=== PATIENT | female | born 1970 | race Caucasian/White ===

== ENCOUNTER → 2017-06-25 | Outpatient (CLI) | payer OTHER ==
--- NOTE | 2017-06-25 13:50 | BD ---
EXAMINATION TYPE: MG DEXA axial skeleton. DATE OF EXAM: 06/25/2017 COMPARISON: NONE CLINICAL HISTORY: Osteoporosis screening. Height: 64 IN Weight: 215 LBS FRAX RISK QUESTIONS: Alcohol (3 or more units per day): NO Family History (Parent hip fracture): NO Glucocorticoids (More than 3mos): NO (Ex: prednisone, prednisolone, methylprednisolone, dexamethasone, and hydrocortisone). History of Fracture in Adulthood: N/A Secondary Osteoporosis: 1. Type 1 Diabetes: NO 2. Hyperthyroidism: NO 3. Menopause before 45: NO AGE 46 4. Malnutrition: NO 5. Chronic liver disease: NO Rheumatoid Arthritis: NO Current Tobacco Use: NO RISK FACTORS HISTORY OF: Family History of Osteoporosis: MOTHER, GRANDMOTHER, AUNT Active: YES Postmenopausal woman: AGE 46 Take estrogen and/or progesterone medications: NONE NOW How long: AGE 16 - 26. OFF AND ON Adrenal Insufficiency: YES MEDICATIONS: Additional Medications: CALCIUM, VIT D EXAM MEASUREMENTS: Bone mineral densitometry was performed using the [employer] System. Bone mineral density as measured about the Lumbar spine is: ----- L1-L4(G/cm2): 1.190 T Score Values are as follows: ----- L2: 0.5 ----- L3: 0.1 ----- L4: -0.2 ----- L1-L4: 0.1 Bone mineral density BASELINE Bone mineral density about the R hip (g/cm2): 0.744 Bone mineral density about the L hip (g/cm2): 0.772 T Score values are as follows: -----R Neck: -2.1 -----L Neck: -1.9 -----R Total: -1.2 -----L Total: -1.2 Bone mineral density BASELINE IMPRESSION: Osteopenia (T Score between -2.5 and -1) with regards to the hips. There is slightly increased risk of fracture and the patient may be considered for treatment. Re-Screen 2-5 years. NOTE: T-SCORE=SD OF THE YOUNG ADULT MEAN.
== END | disposition home or self-care (01) ==
LOC: RADBDWWP 12:06
PROVIDERS: ATTEND Family Medicine
DX: M85.852 Other specified disorders of bone density and structure, left thigh (principal); M85.851 Other specified disorders of bone density and structure, right thigh
CPT/HCPCS: 77080

== ENCOUNTER → 2017-09-05 | Outpatient (CLI) | payer OTHER ==
--- NOTE | 2017-09-07 10:33 | MM ---
Reason for exam: screening (asymptomatic). Physical Findings: A clinical breast exam by your physician is recommended on an annual basis and results should be correlated with mammographic findings. MG 3D Screening Mammo W/Cad Bilateral CC and MLO view(s) were taken. The breast tissue is heterogeneously dense. This may lower the sensitivity of mammography. There is chronic nodularity in the right breast. No significant changes when compared with prior studies. ASSESSMENT: Negative, BI-RAD 1 RECOMMENDATION: Routine screening mammogram of both breasts in 1 year.
== END | disposition home or self-care (01) ==
LOC: RADMAMWWP 14:59
DX: Z12.31 Encounter for screening mammogram for malignant neoplasm of breast (principal)
CPT/HCPCS: 77063; 77067

== ENCOUNTER → 2018-01-11 | Outpatient (CLI) | payer OTHER ==
--- NOTE | 2018-01-11 15:13 | US ---
EXAMINATION TYPE: US pelvic complete DATE OF EXAM: 01/11/2018 COMPARISON: NONE CLINICAL HISTORY: N93.9 ABNORMAL UTERINE [id number]; 2 menses in November TECHNIQUE: Transvaginal (TV) and Transabdominal (TA) . Transabdominal sonographic images of the pel vis were acquired. Transvaginal sonographic images were medically necessary to better assess the fol lowing anatomy: endometrium Date of LMP: end of November EXAM MEASUREMENTS: Uterus: 9.9 x 5.5 x 4.3 cm Endometrial Stripe: 0.7 cm Right Ovary: 2.7 x 2.2 x 2.0 cm Left Ovary: 3.0 x 2.6 x 3.0 cm 1. Uterus: Anteverted; multiple Nabothian Cysts in cervix with largest = 0.9 x 1.1 x 0.9cm. 2. Endometrium: thickness is wnl for approximately Day 16 LMP 3. Right Ovary: small follicles with largest = 0.8 x 0.8 x 0.6cm 4. Left Ovary: simple follicle = 2.1 x 2.2 x 2.4cm Spectral, color and waveform Doppler imaging shows good arterial and venous flow within the ovaries ; . 5. Bilateral Adnexa: wnl 6. Posterior cul-de-sac: wnl Heterogeneous anteverted uterus is seen. Multiple nabothian cysts are seen best on transvaginal evalu ation of cervix. Endometrium is not suspiciously thickened. No free fluid is seen in pelvic cul-de-sa c. Both ovaries are seen. Within left ovary there is 2.1 x 2.4 cm prominent follicle or simple small ova shereen cyst marked by technologist. No suspicious extraovarian adnexal lesions are seen. IMPRESSION: No suspicious endometrial thickening or finding seen to account for patient's abnormal ut erine bleeding.
== END ==
LOC: RADUSWWP 13:33
DX: N93.9 Abnormal uterine and vaginal bleeding, unspecified (principal)
CPT/HCPCS: 76830; 76856

== ENCOUNTER 2018-06-17 18:17 | Emergency (ER) | payer OTHER, BC ==
[2018-06-17] MEDS ORDERED: PANTOPRAZOLE 40 MG/10 ML VIAL IVP STA (19:28)
[2018-06-17] MEDS ORDERED: SODIUM CHLORIDE 0.9% 1,000 ML IV STA ×2 (19:28)
[2018-06-17] MEDS ORDERED: ONDANSETRON 4 MG/2 ML VIAL IVP STA (19:28)
[2018-06-17] MEDS ORDERED: ACETAMINOPHEN TAB 500 MG TAB PO STA (19:29)
[2018-06-17] MEDS ORDERED: IBUPROFEN 800 MG TAB PO STA (19:29)
--- NOTE | 2018-06-17 19:29 | ED ---
Abdominal Pain HPI - General Chief Complaint: Abdominal Pain Stated Complaint: poss food poisening Time Seen by Provider: 06/17/18 19:27 Source: patient, RN notes reviewed, old records reviewed Mode of arrival: ambulatory Limitations: no limitations - History of Present Illness Initial Comments: This is a 48-year-old female the ER for evaluation. States she presents for evaluation regards to nausea vomiting. Nausea vomiting epigastric pain for a few hours today began at work. No diarrhea no fevers. No prior history of similar complaints. No history of abdominal surgery. MD Complaint: abdominal pain -: hour(s) Location: diffuse, epigastric Radiation: RLQ, epigastric Migration to: epigastric Severity: moderate Severity scale (1-10): 4 Quality: cramping, stabbing Consistency: constant Improves With: nothing Worsens With: nothing Context: possible food poisoning Associated Symptoms: nausea, vomiting - Related Data Home Medications Medication Instructions Recorded Confirmed Biotin 5,000 mcg PO DAILY 06/17/18 06/17/18 Calcium Carbonate [Tums] 1,000 mg PO Q4H 06/17/18 06/17/18 Ergocalciferol [Vitamin D2 50,000 unit PO Q7D 06/17/18 06/17/18 (DRISDOL)] Melatonin 2.5 mg PO HS 06/17/18 06/17/18 Previous Rx's Medication Instructions Recorded Ondansetron Odt [Zofran ODT] 4 mg PO Q8HR PRN #10 tab 06/17/18 Allergies Allergy/AdvReac Type Severity Reaction Status Date / Time No Known Allergies Allergy Verified 06/17/18 19:56 Review of Systems ROS Statement: Those systems with pertinent positive or pertinent negative responses have been documented in the HPI. ROS Other: All systems not noted in ROS Statement are negative. Past Medical History Past Medical History: No Reported History History of Any Multi-Drug Resistant Organisms: None Reported Past Surgical History: Adenoidectomy, Tonsillectomy, Tubal Ligation Additional Past Surgical History / Comment(s): hystoscopy Past Psychological History: No Psychological Hx Reported Smoking Status: Never smoker Past Alcohol Use History: None Reported Past Drug Use History: None Reported General Exam Limitations: no limitations General appearance: alert, in no apparent distress Head exam: Present: atraumatic, normocephalic, normal inspection Eye exam: Present: normal appearance, PERRL, EOMI. Absent: scleral icterus, conjunctival injection, periorbital swelling ENT exam: Present: normal exam, mucous membranes moist Neck exam: Present: normal inspection. Absent: tenderness, meningismus, lymph adenopathy Respiratory exam: Present: normal lung sounds bilaterally. Absent: respiratory distress, wheezes, rales, rhonchi, stridor Cardiovascular Exam: Present: normal rhythm, tachycardia, normal heart sounds. Absent: systolic murmur, diastolic murmur, rubs, gallop, clicks GI/Abdominal exam: Present: soft, normal bowel sounds. Absent: distended, tenderness, guarding, rebound, rigid Extremities exam: Present: normal inspection, full ROM, normal capillary refill. Absent: tenderness, pedal edema, joint swelling, calf tenderness Back exam: Present: normal inspection Neurological exam: Present: alert, oriented X3, CN II-XII intact Psychiatric exam: Present: normal affect, normal mood Skin exam: Present: warm, dry, intact, normal color. Absent: rash Course Vital Signs 06/17/18 06/17/18 18:50 21:34 Temperature 101.4 F H 98.3 F Pulse Rate 104 H 90 Respiratory 20 18 Rate Blood Pressure 118/65 107/58 O2 Sat by Pulse 97 97 Oximetry - Reevaluation(s) Reevaluation #1: 06/17/18 20:35 medical record is reviewed Reevaluation #2: 06/17/18 20:35 symptoms improved Medical Decision Making - Medical Decision Making 4-year-old female the ER for evaluation of gastritis, positive nausea vomiting abdominal pain, the patient can be discharged home - Lab Data Result diagrams: 06/17/18 19:57 06/17/18 19:57 Lab Results 06/17/18 06/17/18 06/17/18 Range/Units 19:57 19:57 19:57 WBC 10.6 (3.8-10.6) k/uL RBC 5.17 (3.80-5.40) m/uL Hgb 14.7 (11.4-16.0) gm/dL Hct 42.4 (34.0-46.0) % MCV 82.0 (80.0-100.0) fL MCH 28.5 (25.0-35.0) pg MCHC 34.7 (31.0-37.0) g/dL RDW 13.3 (11.5-15.5) % Plt Count 308 (150-450) k/uL Neutrophils % 90 % Lymphocytes % 6 % Monocytes % 3 % Eosinophils % 1 % Basophils % 0 % Neutrophils # 9.6 H (1.3-7.7) k/uL Lymphocytes # 0.6 L (1.0-4.8) k/uL Monocytes # 0.3 (0-1.0) k/uL Eosinophils # 0.1 (0-0.7) k/uL Basophils # 0.0 (0-0.2) k/uL Sodium 138 (137-145) mmol/L Potassium 3.9 (3.5-5.1) mmol/L Chloride 103 (98-107) mmol/L Carbon Dioxide 25 (22-30) mmol/L Anion Gap 10 mmol/L BUN 16 (7-17) mg/dL Creatinine 0.96 (0.52-1.04) mg/dL Est GFR (CKD-EPI)AfAm 80 (>60 ml/min/1.73 sqM) Est GFR (CKD-EPI)NonAf 69 (>60 ml/min/1.73 sqM) Glucose 123 H (74-99) mg/dL Lactic Ac Sepsis Rflx Plasma Lactic Acid David 2.5 H* (0.7-2.0) mmol/L Calcium 9.5 (8.4-10.2) mg/dL Phosphorus 2.0 L (2.5-4.5) mg/dL Magnesium 1.6 (1.6-2.3) mg/dL Total Bilirubin 0.9 (0.2-1.3) mg/dL AST 24 (14-36) U/L ALT 36 (9-52) U/L Alkaline Phosphatase 68 (38-126) U/L Total Protein 7.0 (6.3-8.2) g/dL Albumin 4.4 (3.5-5.0) g/dL Amylase 55 (30-110) U/L Lipase 65 (23-300) U/L 06/17/18 Range/Units 20:45 WBC (3.8-10.6) k/uL RBC (3.80-5.40) m/uL Hgb (11.4-16.0) gm/dL Hct (34.0-46.0) % MCV (80.0-100.0) fL MCH (25.0-35.0) pg MCHC (31.0-37.0) g/dL RDW (11.5-15.5) % Plt Count (150-450) k/uL Neutrophils % % Lymphocytes % % Monocytes % % Eosinophils % % Basophils % % Neutrophils # (1.3-7.7) k/uL Lymphocytes # (1.0-4.8) k/uL Monocytes # (0-1.0) k/uL Eosinophils # (0-0.7) k/uL Basophils # (0-0.2) k/uL Sodium (137-145) mmol/L Potassium (3.5-5.1) mmol/L Chloride (98-107) mmol/L Carbon Dioxide (22-30) mmol/L Anion Gap mmol/L BUN (7-17) mg/dL Creatinine (0.52-1.04) mg/dL Est GFR (CKD-EPI)AfAm (>60 ml/min/1.73 sqM) Est GFR (CKD-EPI)NonAf (>60 ml/min/1.73 sqM) Glucose (74-99) mg/dL Lactic Ac Sepsis Rflx Y Plasma Lactic Acid David (0.7-2.0) mmol/L Calcium (8.4-10.2) mg/dL Phosphorus (2.5-4.5) mg/dL Magnesium (1.6-2.3) mg/dL Total Bilirubin (0.2-1.3) mg/dL AST (14-36) U/L ALT (9-52) U/L Alkaline Phosphatase (38-126) U/L Total Protein (6.3-8.2) g/dL Albumin (3.5-5.0) g/dL Amylase (30-110) U/L Lipase (23-300) U/L - Radiology Data Radiology results: report reviewed (CT of pelvis, ultrasound gallbladder negative for acute disease), image reviewed Disposition Clinical Impression: Abdominal pain, Gastroenteritis, Nausea & vomiting Disposition: HOME SELF-CARE Instructions (If sedation given, give patient instructions): Acute Nausea and Vomiting (ED), Abdominal Pain (ED) Prescriptions: Ondansetron Odt [Zofran ODT] 4 mg PO Q8HR PRN #10 tab PRN Reason: nausea/vomiting Is patient prescribed a controlled substance at d/c from ED?: No Referrals: [facility],Clinic [Primary Care Provider] - 1-2 days
[2018-06-17 20:10] LABS: Basophils % (A) 0 %; Eosinophils # (A) 0.1 k/uL (0-0.7); Eosinophils % (A) 1 %; HCT 42.4 % (34.0-46.0); HGB 14.7 gm/dL (11.4-16.0); Lymphocytes # (A) 0.6 k/uL (1.0-4.8); Lymphocytes % (A) 6 %; MCH 28.5 pg (25.0-35.0); MCHC 34.7 g/dL (31.0-37.0); Mean Platelet Volume 7.3; Monocytes # (A) 0.3 k/uL (0-1.0); Monocytes % (A) 3 %; Neutrophils # (A) 9.6 k/uL (1.3-7.7); Neutrophils % (A) 90 %; Platelet Count 308 k/uL (150-450); RBC 5.17 m/uL (3.80-5.40); RDW 13.3 % (11.5-15.5); WBC 10.6 k/uL (3.8-10.6)
[2018-06-17 20:20] LABS: Albumin 4.4 g/dL (3.5-5.0); Calcium 9.5 mg/dL (8.4-10.2); Magnesium 1.6 mg/dL (1.6-2.3); Potassium 3.9 mmol/L (3.5-5.1); Total Bilirubin 0.9 mg/dL (0.2-1.3)
[2018-06-17] MEDS ORDERED: MORPHINE SULFATE 4 MG/ML SYRINGE IVP STA (20:35)
[2018-06-17] MEDS ORDERED: MORPHINE SULFATE 4 MG/ML SYRINGE IVP PRN (20:35)
--- NOTE | 2018-06-17 21:05 | CT ---
EXAMINATION TYPE: CT abdomen pelvis w con DATE OF EXAM: 06/17/2018 COMPARISON: None HISTORY: Mid abdominal pain. CT DLP: 1176.3 mGycm Automated exposure control for dose reduction was used. TECHNIQUE: Helical acquisition of images was performed from the lung bases through the pelvis. CONTRAST: Performed without Oral Contrast and with IV Contrast, patient injected with 100ml mL of Isovue 300. FINDINGS: Lung bases are clear of infiltrate. There is no pleural effusion. Heart size is normal. There is no p ericardial effusion. There is fatty infiltration of the liver. Spleen appears normal. There is no viramontes creatic mass. Stomach appears normal. The bile ducts are not dilated. Gallbladder appears normal. There is no adrenal mass. Kidneys show satisfactory contrast opacification. There is no hydronephrosi s. There is no retroperitoneal adenopathy. Appendix appears normal. Bladder distends smoothly. There is no inguinal hernia. There is no free fluid in the pelvis. Uterus is anteverted. There is no sign o f a pelvic mass. There is no mesenteric edema. There is no ascites. There is no free air. There is no evidence of dafne l obstruction. Lumbar spine is intact. Bony pelvis is intact. IMPRESSION: NEGATIVE CT SCAN OF THE ABDOMEN AND PELVIS. NORMAL APPENDIX.
--- NOTE | 2018-06-17 21:23 | US ---
EXAMINATION TYPE: US gallbladder DATE OF EXAM: 06/17/2018 COMPARISON: NONE CLINICAL HISTORY: Pain. RUQ pain EXAM MEASUREMENTS: Liver Length: 20.1 cm Gallbladder Wall: 0.3 cm CBD: 0.5 cm Right Kidney: 10.7 x 4.3 x 4.2 cm Pancreas: Obscured by bowel gas Liver: Increased attenuation hepatomegaly. Gallbladder: Echoes seen artifact vs. sludge. Evidence for sonographic Minor's sign: Yes CBD: wnl Right Kidney: wnl IMPRESSION: No gallstones or dilated ducts. Hepatomegaly and fatty infiltration of the liver.
[2018-06-17 21:36] VITALS: BP 107/58; PULSE 90; RESP 18; TEMP 98.3
== END 2018-06-17 21:40 | disposition home or self-care (01) ==
LOC: EC 18:17
DX: K52.9 Noninfective gastroenteritis and colitis, unspecified (principal); R00.0 Tachycardia, unspecified; Z53.20 Procedure and treatment not carried out because of patient's decision for unspecified reasons
CPT/HCPCS: 36415; 80053; 82150; 83605; 83690; 83735; 84100; 85025; 76705; 74177; 99284; 96374; 96375; 96361; J2405; C9113; Q9967

== ENCOUNTER → 2018-10-17 | Outpatient (CLI) | payer BC, OTHER ==
--- NOTE | 2018-10-18 09:09 | MM ---
Reason for exam: screening (asymptomatic). Last mammogram was performed 1 year and 1 month ago. Physical Findings: A clinical breast exam by your physician is recommended on an annual basis and results should be correlated with mammographic findings. MG 3D Screening Mammo W/Cad Bilateral CC and MLO view(s) were taken. XCCL view(s) were taken of the right breast. Prior study comparison: September 05, 2017, bilateral MG 3d screening mammo w/cad. The breast tissue is heterogeneously dense. This may lower the sensitivity of mammography. There is no discrete abnormality. No significant changes when compared with prior studies. ASSESSMENT: Negative, BI-RAD 1 RECOMMENDATION: Routine screening mammogram of both breasts in 1 year.
== END | disposition home or self-care (01) ==
LOC: RADMAMWWP 11:19
DX: Z12.31 Encounter for screening mammogram for malignant neoplasm of breast (principal)
CPT/HCPCS: 77063; 77067

== ENCOUNTER → 2018-11-11 | Outpatient (CLI) | payer OTHER ==
--- NOTE | 2018-11-11 09:32 | US ---
EXAMINATION TYPE: US abdomen complete DATE OF EXAM: 11/11/2018 COMPARISON: US & CT 2019 CLINICAL HISTORY: 48-year-old female R10.9 BLOATING. Abdominal pain and bloating that gets worse afte r eating or drinking x couple years, patient not NPO: had coffee before exam. TECHNIQUE: Multiple sonographic images of the abdomen are obtained. FINDINGS: EXAM MEASUREMENTS: Liver Length: 17.6 cm Gallbladder Wall: 0.2 cm CBD: 0.4 cm Spleen: 10.7 cm Right Kidney: 9.2 x 4.4 x 4.5 cm Left Kidney: 9.6 x 5.5 x 4.2 cm [employer] notes:Difficult and limited study due to patient body habitus and patient not NPO Pancreas: visualized portions wnl, limited by overlying midline bowel gas Liver: Borderline enlarged. Echogenic and slightly coarsened appearance with far field attenuation. T he secondary limits assessment for focal lesion. Gallbladder: wnl Evidence for sonographic Minor's sign: yes CBD: visualized portions wnl, limited by overlying bowel gas Spleen: wnl Right Kidney: wnl Left Kidney: wnl Upper IVC: wnl Abd Aorta: visualized portions wnl, limited by overlying midline bowel gas IMPRESSION: 1. Suspect moderate to severe hepatic steatosis with borderline hepatomegaly (17.6 cm). 2. Sonographic Minor signs were positive. However, there is no ultrasound evidence for cholelithiasi s or acute cholecystitis. This may reflect referred pain such as from the liver. If further imaging e valuation of the gallbladder is desired, HIDA scan can be considered.
--- NOTE | 2018-11-11 19:31 | BD ---
EXAMINATION TYPE: Axial Bone Density DATE OF EXAM: 11/11/2018 COMPARISON: 2018 CLINICAL HISTORY: 48-year-old female other osteoporosis with current pathologic fracture : no Height: 64.25 Weight: 204 FRAX RISK QUESTIONS: Alcohol (3 or more units per day): no Family History (Parent hip fracture): no Glucocorticoids (More than 3mos): no (Ex: prednisone, prednisolone, methylprednisolone, dexamethasone, and hydrocortisone). History of Fracture in Adulthood: no Secondary Osteoporosis: 1. Type 1 Diabetes: no 2. Hyperthyroidism: no 3. Menopause before 45: no 4. Malnutrition: no 5. Chronic liver disease: no Rheumatoid Arthritis: no Current Tobacco Use: no RISK FACTORS HISTORY OF: Family History of Osteoporosis: yes Active: yes Diet low in dairy products/other sources of calcium: no Postmenopausal woman: no If Premenopausal, do you have irregular periods: yes Take estrogen and/or progesterone medications: not now How long: DEPO shots for 8 years, not now Lost more than 2 inches in height since high school: no Frequent falls: no Poor Health: no Hyperparathyroidism: no Adrenal Insufficiency: NO MEDICATIONS: Prednisone or other steroids: no Thyroid Medications: no Osteoporosis Medications: no Additional Medications: none to note Additional History: EXAM MEASUREMENTS: Bone mineral densitometry was performed using the [employer] System. Bone mineral density as measured about the Lumbar spine is: ----- L1-L4(G/cm2): 1.171 T Score Values are as follows: ----- L2: -0.3 ----- L3: 0.1 ----- L4: -0.3 ----- L1-L4: -0.1 Bone mineral density has: Decreased -2.5% since study of: 06/25/2017 Bone mineral density about the R hip (g/cm2): 0.749 Bone mineral density about the L hip (g/cm2): 0.801 T Score values are as follows: -----R Neck: -2.1 -----L Neck: -1.7 -----R Total: -1.2 -----L Total: -1.2 Bone mineral density has: Increased 0.8% since study of: 06/25/2017 IMPRESSION: Osteopenia (T Score between -2.5 and -1). There is slightly increased risk of fracture and the patient may be considered for treatment. Re-Screen 2-5 years. NOTE: T-SCORE=SD OF THE YOUNG ADULT MEAN.
== END | disposition home or self-care (01) ==
LOC: RADUSWWP 07:53
PROVIDERS: ATTEND Physician Assistant Medical
DX: M85.80 Other specified disorders of bone density and structure, unspecified site (principal); R93.5 Abnormal findings on diagnostic imaging of other abdominal regions, including retroperitoneum; R10.9 Unspecified abdominal pain
CPT/HCPCS: 76700; 77080

== ENCOUNTER → 2018-12-05 | Outpatient (CLI) | payer OTHER ==
--- NOTE | 2018-12-05 09:27 | NM ---
Nuclear medicine hepatobiliary scan. HISTORY: Pain. DOSAGE: The patient received 8 ounces of ensure plus and 4.5 mCi of Technetium 99m Choletec. FINDINGS: There is normal hepatic extraction. The gallbladder is seen by 30 minutes. There is bilia ry to bowel clearance by 20 minutes. Ejection fraction is 84%. IMPRESSION: 1. Ejection fraction is 84% which can occasionally be seen with hyperdynamic gallbladder correlate cl inically
== END | disposition home or self-care (01) ==
LOC: RADNMMAIN 06:52
PROVIDERS: ATTEND Physician Assistant Medical
DX: R14.0 Abdominal distension (gaseous) (principal)
CPT/HCPCS: 78226; A9537

== ENCOUNTER → 2020-04-07 | Outpatient (CLI) | payer OTHER ==
--- NOTE | 2020-04-07 17:24 | BD ---
EXAMINATION TYPE: Axial Bone Density DATE OF EXAM: 04/07/2020 COMPARISON: 11.11.2018 CLINICAL HISTORY: 49 YR OLD FEMALE....ICD-10 CODE: M81.8 OSTEOPOROSIS Height: 64 Weight: 206 FRAX RISK QUESTIONS: Family History (Parent hip fracture): YES Secondary Osteoporosis: YES 3. Menopause before 45: YES Current Tobacco Use: QUIT 6 YRS AGO RISK FACTORS HISTORY OF: Family History of Osteoporosis: YES, GRANDMOTHER AND HER SISTER, BOTH WITH HIP FXS Active: YES Diet low in dairy products/other sources of calcium: NO Postmenopausal woman: YES, AT AGE ABOUT 38 YRS ON AND OFF DEPO, REMOVED PERMANENTLY 2013 Take estrogen and/or progesterone medications: DEPO FOR 8 YRS Hyperparathyroidism: NO Adrenal Insufficiency: NO MEDICATIONS: Additional Medications: VIT D, VIT C AND MULTIVITAMIN, Additional History: NOTHING ADDITIONAL TO ADD EXAM MEASUREMENTS: Bone mineral densitometry was performed using the [employer] System. Bone mineral density as measured about the Lumbar spine is: ----- L1-L4(G/cm2): 1.281 T Score Values are as follows: ----- L1: 0.4 ----- L2: 1.1 ----- L3: 0.8 ----- L4: 0.9 ----- L1-L4: 0.8 Bone mineral density has: Increased 11.1% since study of: 11.11.2018 Bone mineral density about the R hip (g/cm2): 0.887 Bone mineral density about the L hip (g/cm2): 0.899 T Score values are as follows: -----R Neck: -1.9 -----L Neck: -1.7 -----R Total: -1.0 -----L Total: -0.9 Bone mineral density has: Increased 3.7% since study of: 11.11.2018 FRAX%s: THERE IS A 11.0% CHANCE FOR A MAJOR OSTEOPOROTIC FX AND A 0.7% FOR HIP......PROBABILIT Y FOR FX IN 10 YRS TIME IMPRESSION: Osteopenia (T Score between -2.5 and -1). There is slightly increased risk of fracture and the patient may be considered for treatment. Re-Screen 2-5 years. NOTE: T-SCORE=SD OF THE YOUNG ADULT MEAN.
--- NOTE | 2020-04-08 12:16 | MM ---
Reason for exam: screening (asymptomatic). Last mammogram was performed 1 year and 6 months ago. Physical Findings: A clinical breast exam by your physician is recommended on an annual basis and results should be correlated with mammographic findings. MG 3D Screening Mammo W/Cad Bilateral CC and MLO view(s) were taken. Prior study comparison: October 17, 2018, bilateral MG 3d screening mammo w/cad. September 05, 2017, bilateral MG 3d screening mammo w/cad. The breast tissue is heterogeneously dense. This may lower the sensitivity of mammography. Focal asymmetry upper outer left breast. This finding is changed when compared with previous exams. ASSESSMENT: Incomplete: need additional imaging evaluation, BI-RAD 0 RECOMMENDATION: Special view mammogram of the left breast. If lesion persists on supplemental views, image directed ultrasound is recommended. [facility] will attempt to contact patient to return for supplemental views and ultrasound if indicated.
== END | disposition home or self-care (01) ==
LOC: RADMAMWWP 08:18
DX: Z12.31 Encounter for screening mammogram for malignant neoplasm of breast (principal); M85.80 Other specified disorders of bone density and structure, unspecified site
CPT/HCPCS: 77063; 77067; 77080

== ENCOUNTER → 2020-04-09 | Outpatient (CLI) | payer OTHER ==
--- NOTE | 2020-04-09 09:21 | MM ---
Reason for exam: additional evaluation requested from abnormal screening. Last mammogram was performed less than 1 month ago. Physical Findings: Nurse did not find any significant physical abnormalities on exam. MG 3D Work Up W/Cad LT Spot compression CC, spot compression MLO, and ML view(s) were taken of the left breast. Prior study comparison: April 07, 2020, bilateral MG 3d screening mammo w/cad. October 17, 2018, bilateral MG 3d screening mammo w/cad. The breast tissue is heterogeneously dense. This may lower the sensitivity of mammography. Area of asymmetric density is improved. These results were verbally communicated with the patient and result sheet given to the patient on 04/09/20. ASSESSMENT: Probably benign, BI-RAD 3 RECOMMENDATION: Follow-up diagnostic mammogram of the left breast in 6 months.
== END | disposition home or self-care (01) ==
LOC: RADMAMWWP 07:41
DX: R92.8 Other abnormal and inconclusive findings on diagnostic imaging of breast (principal)
CPT/HCPCS: 77061; 77065

== ENCOUNTER 2020-08-09 10:16 | Day surgery (SDC) | payer OTHER ==
[2020-08-05 12:05] VITALS: BMI 36.3
[~2020-08-09 10:16] MED LIST: LACTATED RINGERS 1,000 ML IV SCH; LIDOCAINE 1% (10MG/ML) FOR IV START INTRADERMA PRN
[2020-08-09 10:40] VITALS: RESP 16; TEMP 97.3
[2020-08-09] MEDS ORDERED: PROPOFOL 10 MG/ML 20 ML VIAL IV ONE (11:53)
--- NOTE | 2020-08-09 12:37 | P.PCN ---
Date of Procedure: 08/09/20 Description of Procedure: BRIEF HISTORY: Patient is a 50-year-old female presenting for outpatient colonoscopy for history of colon polyps. She believes her last colonoscopy was 10 years ago. No change in bowel habits or blood per rectum. She does report a family history of colon cancer in her grandfather. PROCEDURE PERFORMED: Colonoscopy with polypectomy. PREOPERATIVE DIAGNOSIS: History of colon polyps, last colonoscopy approximately 10 years ago per report from patient. ESTIMATED BLOOD LOSS: Minimal. IV sedation per Anesthesia. PROCEDURE: After informed consent was obtained, the patient, was brought into the endoscopy unit. IV sedation was administered by Anesthesia under continuous monitoring. Digital rectal examination was normal. Initially the Olympus CF-190 flexible video colonoscope was then inserted in the rectum, gradually advanced into the cecum without any difficulty. Careful examination was performed as the scope was gradually being withdrawn. Ileocecal valve and the appendiceal orifice were visualized and appeared normal. Prep was excellent. Mucosa of the cecum, ascending colon, transverse colon, descending colon, sigmoid colon, and rectum appeared normal. A flat 5 mm transverse colon polyp was removed with cold snare polypectomy. A pedunculated 8 mm sigmoid colon polyp was removed with hot snare polypectomy. A diminutive 3 mm rectal polyp was removed with cold forcep polypectomy. A few scattered sigmoid diverticula noted. Retroflexion was performed in the rectum and no lesions were seen, low-grade internal hemorrhoids were noted. The patient tolerated the procedure well. IMPRESSION: Pedunculated sigmoid polyp removed with hot snare polypectomy. Flat measures colon polyp removed with cold snare polypectomy. Diminutive rectal polyp removed with cold forcep polypectomy. Mild sigmoid diverticulosis. Internal hemorrhoids. RECOMMENDATIONS: Findings of this examination were discussed with the patient and her family. Okay to resume diet. Okay to resume medications. Await pathology from polypectomy. Recommend repeat colonoscopy in 5 years for history of colon polyps pending pathology from polypectomy.
[2020-08-09 12:54] VITALS: BP 138/75; PULSE 77
== END 2020-08-09 13:12 | disposition home or self-care (01) ==
LOC: ORWHC2ENDO 10:16
PROVIDERS: ATTEND Internal Medicine
DX: Z12.11 Encounter for screening for malignant neoplasm of colon (principal); D12.3 Benign neoplasm of transverse colon; D12.5 Benign neoplasm of sigmoid colon; D12.8 Benign neoplasm of rectum; K57.30 Diverticulosis of large intestine without perforation or abscess without bleeding; K64.8 Other hemorrhoids; Z86.010 Personal history of colon polyps; Z83.71 Family history of colonic polyps; E66.9 Obesity, unspecified; Z68.36 Body mass index [BMI] 36.0-36.9, adult; Z87.891 Personal history of nicotine dependence; Z90.89 Acquired absence of other organs; Z98.51 Tubal ligation status; Z98.890 Other specified postprocedural states
CPT/HCPCS: 81025; 88305; 45380; 45385; J2704

== ENCOUNTER → 2020-10-08 | Outpatient (CLI) | payer OTHER ==
--- NOTE | 2020-10-08 11:43 | MM ---
Reason for exam: follow-up at short interval from prior study. Last mammogram was performed 6 months ago. Physical Findings: Nurse did not find any significant physical abnormalities on exam. MG 3D Diag Mammo W/Cad LT CC and MLO view(s) were taken of the left breast. Prior study comparison: April 09, 2020, left breast MG 3d work up w/cad LT. The breast tissue is heterogeneously dense. This may lower the sensitivity of mammography. Focal asymmetry left upper outer quadrant, stable. No significant new findings when compared with previous films. These results were verbally communicated with the patient and result sheet given to the patient on 10/08/20. ASSESSMENT: Benign, BI-RAD 2 RECOMMENDATION: Return to routine screening mammogram schedule for both breasts.
== END | disposition home or self-care (01) ==
LOC: RADMAMWWP 06:57
DX: R92.8 Other abnormal and inconclusive findings on diagnostic imaging of breast (principal)
CPT/HCPCS: 77061; 77065

== ENCOUNTER → 2020-10-16 | Outpatient (CLI) | payer OTHER ==
[2020-10-16 12:12] LABS: Potassium 4.9 mmol/L (3.5-5.1)
[2020-10-16 12:23] LABS: Basophils # (A) 0.1 k/uL (0-0.2); Basophils % (A) 1 %; Eosinophils # (A) 0.2 k/uL (0-0.7); Eosinophils % (A) 3 %; HCT 43.4 % (34.0-46.0); Lymphocytes # (A) 2.6 k/uL (1.0-4.8); Lymphocytes % (A) 34 %; MCH 29.3 pg (25.0-35.0); MCHC 34.5 g/dL (31.0-37.0); MCV 85.1 fL (80.0-100.0); Mean Platelet Volume 8.4; Monocytes # (A) 0.5 k/uL (0-1.0); Monocytes % (A) 7 %; Neutrophils # (A) 4.1 k/uL (1.3-7.7); Neutrophils % (A) 54 %; Platelet Count 299 k/uL (150-450); RBC 5.11 m/uL (3.80-5.40); RDW 13.3 % (11.5-15.5); WBC 7.6 k/uL (3.8-10.6)
== END | disposition home or self-care (01) ==
LOC: LABPAT 10:20
PROVIDERS: ATTEND Obstetrics & Gynecology Obstetrics
DX: Z01.812 Encounter for preprocedural laboratory examination (principal); N92.0 Excessive and frequent menstruation with regular cycle; N94.6 Dysmenorrhea, unspecified
CPT/HCPCS: 36415; 80051; 82565; 82947; 84520; 85025; 87086

== ENCOUNTER 2020-10-19 05:53 | Day surgery (SDC) | payer OTHER ==
[2020-10-14 08:09] VITALS: BMI 36.0
--- NOTE | 2020-10-18 19:42 | P.HPOB ---
History of Present Illness H&P Date: 10/18/20 Chief Complaint: Heavy menstrual bleeding, dysmenorrhea, failed endometrial ablation This is a 50-year-old 4 para 4 that presents for scheduled robotic- assisted vaginal hysterectomy with left salpingo-oophorectomy, bilateral salpingectomy, diagnostic cystoscopy. Patient has a significant history for dysmenorrhea, menorrhagia. Patient previously had an endometrial ablation that was completed without change in her bleeding pattern. Patient states menstrual cycles are still heavy in nature with large clots. She also notes significant cramping with her periods. Patient is desirous of definitive treatment given failed endometrial ablation procedure. Review of Systems Constitutional: Denies chills, Denies fatigue, Denies fever Ears, nose, mouth and throat: Denies headache Cardiovascular: Denies leg edema Respiratory: Denies dyspnea Gastrointestinal: Denies nausea, Denies vomiting Genitourinary: Denies Past Medical History Past Medical History: Osteoarthritis (OA) Additional Past Medical History / Comment(s): endometriosis, heavy frequent periods History of Any Multi-Drug Resistant Organisms: None Reported Past Surgical History: Adenoidectomy, Tonsillectomy, Tubal Ligation Additional Past Surgical History / Comment(s): hysteroscopy. colonoscopy Past Anesthesia/Blood Transfusion Reactions: No Reported Reaction Additional Past Anesthesia/Blood Transfusion Reaction / Comment(s): "low tolerance to drugs" Smoking Status: Former smoker - Past Family History Father Family Medical History: Cancer Medications and Allergies Home Medications Medication Instructions Recorded Confirmed Type Ascorbic Acid [Vitamin C] 2,000 mg PO DAILY 08/05/20 10/13/20 History Ergocalciferol [Vitamin D2 (1250 1,250 mcg PO WEEKLY 08/05/20 10/13/20 History Mcg = 69720 Iu)] Multivitamins, Thera [Multivitamin 1 tab PO DAILY 08/05/20 10/13/20 History (formulary)] Calcium Carbonate/Vitamin D3 1 tab PO DAILY 10/14/20 10/14/20 History [Calcium 500 mg Chewable Tablet] Cyanocobalamin (Vitamin B-12) 1,000 mcg PO DAILY 10/14/20 10/14/20 History [Vitamin B-12] Potassium/Magnesium 1 tab PO DAILY 10/14/20 History Allergies Allergy/AdvReac Type Severity Reaction Status Date / Time No Known Allergies Allergy Verified 10/14/20 08:09 Exam Osteopathic Statement: *. No significant issues noted on an osteopathic structural exam other than those noted in the History and Physical/Consult. 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 Assessment and Plan (1) Menorrhagia Status: Acute Code(s): N92.0 - EXCESSIVE AND FREQUENT MENSTRUATION WITH REGULAR CYCLE SNOMED Code(s): 563564175 (2) Dysmenorrhea Status: Acute Code(s): N94.6 - DYSMENORRHEA, UNSPECIFIED SNOMED Code(s): 049137994 Plan: This 50-year-old presents with complaints of heavy menstrual bleeding, dysmenorrhea with failed endometrial ablation. Patient states no change in her bleeding pattern since endometrial ablation was completed. Patient notes regular heavy menstrual cycles with the passage of large clots. Patient desires definitive treatment with robotic-assisted vaginal hysterectomy, left salpingo- oophorectomy, bilateral salpingectomy, diagnostic cystoscopy. Questions are answered procedures reviewed. Risks are reviewed including but not limited to infection, bleeding, damage to bladder, bowel, ureteric injury. Patient states understanding and wishes to proceed.
[2020-10-19] MEDS ORDERED: LACTATED RINGERS 1,000 ML IV ONE ×2 (06:46→06:47)
[2020-10-19] MEDS ORDERED: DEXAMETHASONE SOD PHOSPHATE 4 MG/ML 1 ML VIAL IVP ONE (06:48)
[2020-10-19] MEDS ORDERED: ONDANSETRON 4 MG/2 ML VIAL IVP ONE (06:48)
[2020-10-19] MEDS ORDERED: ONDANSETRON 4 MG/2 ML VIAL ONE (06:51)
[2020-10-19] MEDS ORDERED: SUCCINYLCHOLINE CHLORIDE 100 MG/5 ML SYR IV ONE (07:38)
[2020-10-19] MEDS ORDERED: ROCURONIUM 10 MG/ML (5 ML VIAL) IV ONE (07:38)
[2020-10-19] MEDS ORDERED: LIDOCAINE 1% INJ 10MG/ML (20 ML MDV) ONE (07:38)
[2020-10-19] MEDS ORDERED: MIDAZOLAM 2 MG/2 ML VIAL ONE (07:38)
[2020-10-19] MEDS ORDERED: PROPOFOL 10 MG/ML 20 ML VIAL IV ONE (07:38)
[2020-10-19] MEDS ORDERED: fentaNYL (PF) 50 MCG/ML 2 ML AMP ONE (07:38)
[2020-10-19] MEDS ORDERED: SODIUM CHLORIDE 0.9% 100 ML with ceFAZolin 2,000 MG IV ONE ×2 (07:52)
[2020-10-19] MEDS ORDERED: BUPIVACAINE (PF) 0.25% 30 ML VIAL SQ ONE ×2 (08:33→09:16)
[2020-10-19] MEDS ORDERED: Acetaminophen-Codeine 300-30mg TAB PO PRN ×2 (09:25)
[2020-10-19] MEDS ORDERED: ONDANSETRON 4 MG/2 ML VIAL IVP PRN (09:25)
--- NOTE | 2020-10-19 09:33 | P.OP ---
Date of Procedure: 10/19/20 Preoperative Diagnosis: Menorrhagia, dysmenorrhea, failed endometrial ablation Postoperative Diagnosis: Same Procedure(s) Performed: Robotic-assisted vaginal hysterectomy, left salpingo-for ectomy, right salpingectomy, diagnostic cystoscopy Anesthesia: TERRA Surgeon: Bev Mujica Metrology Engineer #1: Jonathan Dominguez Estimated Blood Loss (ml): 50 IV fluids (ml): 700 Urine output (ml): 50 Pathology: other (Uterus cervix left fallopian tube and ovary, right fallopian tube) Condition: stable Disposition: PACU Indications for Procedure: 50-year-old female with complaints of heavy menstrual bleeding despite unde rgoing endometrial ablation. Patient notes extreme cramping with her cycles. Patient wishes definitive treatment with robotic cyst vaginal hysterotomy. Operative Findings: Implants of endometriosis were appreciated in the posterior cul-de-sac. The uterus was noted to be globular and suspicious for adenomyosis. Otherwise the pelvis appeared normal. Description of Procedure: Patient was taken back to the operating suite where general anesthesia was obtained without difficulty by the anesthesia department. She was prepped and draped in the normal sterile fashion in the dorsal lithotomy position. A Rivera catheter was placed under sterile technique. A weighted speculum was placed in the posterior vaginal vault, the anterior lip of the cervix is visualized and grasped with a single-tooth tenaculum. Endocervical canal was then dilated serially. A [email or web address] uterine manipulator was advanced into the uterus as a means to manipulate the uterus throughout the procedure. The balloon was insufflated with air in the Was placed snugly against the cervix. All instruments were removed from the patient's vaginal vault. Attention was then turned the patient's abdomen where partially 2 finger breaths above the umbilicus a small skin incision is made. Through this incision the Veress needle is placed. Once the Veress needle was deemed to be in the appropriate position with a drop of CO2 pressure with insufflation of CO2 gas CO2 insufflation was allowed to occur. Approximately 3 L of CO2 gas were used to insufflate the abdomen. At this time the incision was extended to 8 mm an 8 mm trocar and sleeve with the laparoscope in place placed through the skin incision and toward the pneumoperitoneum. The above-noted findings are visualized. At this point the additional port sites are placed at 10 cm lateral and 3 cm inferior to the midline port these are 8 mm ports and placed under direct visualization. In the left upper quadrant a 12 mm trocar and sleeve is placed under direct visualization. At this time the da Cullen robot is docked in the usual fashion. The operative arms are then placed in the right operative arm the monopolar scissors is placed, in the left operative arm the bipolar forceps is placed. Attention then turned to the patient's left infundibulopelvic ligament which was visualized coagulated distally and proximally and divided. This continued through the broad and toward the round which was coagulated distally and proximal plane divided. Hemostasis was appreciated throughout. The bladder flap was then created using sharp and blunt dissection. The ascending branch the uterine artery was visualized coagulated and transected. Hemostasis was appreciated. Attention was then turned to the patient's right adnexa the fallopian tube was noted to have a prior tubal ligation therefore the fimbriated end was grasped and transected hemostasis was appreciated. This portion of fallopian tube was taken out of the patient clerical assistant port. The uterine ovarian ligament on the right was then visualized coagulated distally and proximally divided. This continued through the broad and toward the round which was coagulated and transected. Hemostasis was appreciated. The bladder flap from the right was then created using sharp and blunt dissection. Hemostasis was appreciated throughout. The ascending bra nch the uterine artery was visualized coagulated and transected. Hemostasis was appreciated once again. At this time the bladder was noted to be free from the operating field. A colpotomy incision was made in a circumferential fashion and the uterus cervix left ovary and tube were removed through the vaginal opening. There was bleeding noted on the left lateral edge of the vaginal cuff this was grasped with a [place] bipolar forceps and hemostasis was appreciated. The vaginal cuff was then closed with multiple [id number] sutures of 0 Vicryl. The pelvis was then copiously irrigated. A small amount of oozing was noted on the vaginal cuff therefore FloSeal was placed across the vaginal cuff hemostasis was appreciated. At this time all instruments removed from the patient's abdom en, and the da Cullen robot was undocked. Attention was then turned the patient's Rivera catheter which was removed without difficulty. A cystoscope was then performed. The cystoscope was placed through the urethra toward the bladder bladder bubble was appreciated. The ureteral orifices were noted to be spilling clear yellow urine. Of note on the patient's left ureter, a double ureter was appreciated. At this time the cystoscope was removed and the Rivera catheter was replaced. The vaginal vault was cleared of all clots and debris hemostasis was appreciated. Attention was then turned the patient's abdomen where the skin incisions were closed with 4-0 Vicryl in a subarticular fashion. Steri-Strips and sterile dressings were applied. All counts were noted to be correct 2 at the end of the procedure. Patient did tolerate procedure well and was taken to the recovery room awake in stable condition.
[2020-10-19] MEDS ORDERED: HYDROmorphone 0.5 MG/0.5 ML SYRINGE IVP ONE (10:04)
[2020-10-19] MEDS ORDERED: ACETAMINOPHEN IV (For NPO) 1,000 MG in EMPTY BAG 1 BAG IVPB ONE (11:00)
[2020-10-19] MEDS ORDERED: IBUPROFEN IV 800 MG in SODIUM CHLORIDE 0.9% 250 ML IV ONE (11:00)
[2020-10-19 11:20] VITALS: RESP 16
[2020-10-19] MEDS: SIMETHICONE 80 MG CHEWABLE PO PRN (14:22)
[2020-10-19] MEDS: ACETAMINOPHEN TAB 325 MG TAB PO PRN (17:40)
[2020-10-19] MEDS: SENNOSIDES-DOCUSATE SODIUM 1 EACH TAB PO SCH (19:57)
[2020-10-19] MEDS: IBUPROFEN 600 MG TAB PO PRN (21:43)
[2020-10-20] MEDS: ACETAMINOPHEN TAB 325 MG TAB PO PRN ×2 (00:59→06:45)
[2020-10-20] MEDS: IBUPROFEN 600 MG TAB PO PRN ×2 (04:14→11:08)
[2020-10-20 06:55] LABS: Basophils % (A) 0 %; Eosinophils # (A) 0.1 k/uL (0-0.7); Eosinophils % (A) 1 %; HCT 38.3 % (34.0-46.0); HGB 13.2 gm/dL (11.4-16.0); Lymphocytes # (A) 2.6 k/uL (1.0-4.8); Lymphocytes % (A) 20 %; MCH 29.4 pg (25.0-35.0); MCHC 34.4 g/dL (31.0-37.0); MCV 85.5 fL (80.0-100.0); Mean Platelet Volume 8.1; Monocytes # (A) 0.9 k/uL (0-1.0); Monocytes % (A) 7 %; Neutrophils # (A) 9.3 k/uL (1.3-7.7); Neutrophils % (A) 71 %; Platelet Count 279 k/uL (150-450); RBC 4.48 m/uL (3.80-5.40); RDW 13.7 % (11.5-15.5); WBC 13.2 k/uL (3.8-10.6)
[2020-10-20 08:21] VITALS: BP 111/67; PULSE 72; TEMP 98.6
--- NOTE | 2020-10-20 08:42 | P.DS ---
Providers Date of admission: 10/19/2020 Expected date of discharge: 10/20/20 Attending physician: Bev Mujica Primary care physician: [facility] - Discharge Diagnosis(es) (1) Menorrhagia Current Visit: No Status: Acute (2) Dysmenorrhea Current Visit: No Status: Acute (3) S/P hysterectomy with oophorectomy Current Visit: Yes Status: Acute Hospital Course: 50-year-old female that presented yesterday for scheduled robotic cyst vaginal hysterotomy with left salpingo-for ectomy, diagnostic cystoscopy. Patient has a history of heavy menstrual bleeding with severe dysmenorrhea, she underwent an endometrial ablation years ago without relief of her menstrual cycles. Patient recently lost her of prostate cancer and is desirous of definitive therapy given her heavy menstrual bleeding. Patient underwent robotic assist vaginal hysterotomy yesterday, for full details on the surgery please see the operative report. Patient's postoperative course has been uneventful. Patient is feeling well this morning. She is ambulating and voiding without difficulty. She notes positive flatus. She notes minimal vaginal bleeding. She states her pain is well-controlled with oral Tylenol and ibuprofen. Patient Condition at Discharge: Good Plan - Discharge Summary Discharge Rx Participant: Yes New Discharge Prescriptions: No Action Multivitamins, Thera [Multivitamin (formulary)] 1 tab PO DAILY Ergocalciferol [Vitamin D2 (1250 Mcg = 27370 Iu)] 1,250 mcg PO WEEKLY Ascorbic Acid [Vitamin C] 2,000 mg PO DAILY Cyanocobalamin (Vitamin B-12) [Vitamin B-12] 1,000 mcg PO DAILY Calcium Carbonate/Vitamin D3 [Calcium 500 mg Chewable Tablet] 1 tab PO DAILY Potassium/Magnesium 1 tab PO DAILY Discharge Medication List Ascorbic Acid [Vitamin C] 2,000 mg PO DAILY 08/05/20 [History] Ergocalciferol [Vitamin D2 (1250 Mcg = 80388 Iu)] 1,250 mcg PO WEEKLY 08/05/20 [History] Multivitamins, Thera [Multivitamin (formulary)] 1 tab PO DAILY 08/05/20 [History] Calcium Carbonate/Vitamin D3 [Calcium 500 mg Chewable Tablet] 1 tab PO DAILY 10/14/20 [History] Cyanocobalamin (Vitamin B-12) [Vitamin B-12] 1,000 mcg PO DAILY 10/14/20 [History] Potassium/Magnesium 1 tab PO DAILY 10/14/20 [History] Follow up Appointment(s)/Referral(s): Bev Mujica DO [Doctor of Osteopathic Medicine] - 2 Weeks Patient Instructions/Handouts: Laparoscopic Hysterectomy (DC), Laparoscopic Hysterectomy (GEN) Discharge Disposition: HOME SELF-CARE
[2020-10-20] MEDS ORDERED: ACETAMINOPHEN TAB 325 MG TAB PO PRN (09:26)
[2020-10-20] MEDS: SENNOSIDES-DOCUSATE SODIUM 1 EACH TAB PO SCH (11:09)
[2020-10-20] MEDS: SIMETHICONE 80 MG CHEWABLE PO PRN (11:10)
== END 2020-10-20 11:50 | disposition home or self-care (01) ==
LOC: OR 05:53 → 4FBP 09:28 → OR 10-20 11:50
PROVIDERS: ATTEND Obstetrics & Gynecology Obstetrics
DX: C54.1 Malignant neoplasm of endometrium (principal); N72 Inflammatory disease of cervix uteri; N88.8 Other specified noninflammatory disorders of cervix uteri; N80.0 Endometriosis of uterus; N83.8 Other noninflammatory disorders of ovary, fallopian tube and broad ligament; N80.3 Endometriosis of pelvic peritoneum; M19.90 Unspecified osteoarthritis, unspecified site; Z87.891 Personal history of nicotine dependence; Z98.51 Tubal ligation status; Z79.899 Other long term (current) drug therapy
CPT/HCPCS: 58552; S2900; 81025; 85025; 86850; 86900; 86901; 88309

== ENCOUNTER → 2021-09-29 | Outpatient (CLI) | payer OTHER ==
--- NOTE | 2021-09-29 08:31 | US ---
EXAMINATION TYPE: US abdomen complete DATE OF EXAM: 09/29/2021 COMPARISON: NONE CLINICAL HISTORY: 51-year-old female pain, R19.7 Diarrhea I88.8 Other nonspecific lymphadenitis. TECHNIQUE: Multiple sonographic images of the abdomen are obtained. FINDINGS: EXAM MEASUREMENTS: Liver Length: 17.8 cm Gallbladder Wall: .2 cm CBD: .5 cm Spleen: 11.4 cm Right Kidney: 9.9 x 4.0 x 3.7 cm Left Kidney: 10.9 x 5.0 x 3.6 cm SHACKLER NOTES: Pancreas: Only portions of the pancreatic head and neck are seen. Body and tail obscured by bowel ga s shadowing. Liver: Echogenic and attenuating. A secondary development assessment for focal lesions. Gallbladder: No stones or abnormal distention. Evidence for sonographic Minor's sign: No CBD: wnl Spleen: wnl Right Kidney: No hydronephrosis or masses seen Left Kidney: No hydronephrosis or masses seen Upper IVC: Obscured by overlying bowel gas Abd Aorta: wnl IMPRESSION: 1. Borderline hepatomegaly (17.8 cm) with severe hepatic steatosis. Correlate with LFTs, lipid profil e, and patient risk factors. 2. No gallstones or biliary ductal dilatation. 3. Limited visualization of the pancreas.
--- NOTE | 2021-09-29 09:32 | CT ---
EXAMINATION TYPE: CT soft tissue neck w con CT DLP: 469.0 mGycm, Automated exposure control for dose reduction was used. DATE OF EXAM: 09/29/2021 9:18 AM COMPARISON: None. CLINICAL INDICATION:Female, 51 years old with history of I88.8 Other nonspecific Lymphadenitis, endom etrial cancer. TECHNIQUE: Standard enhanced CT of the neck following intravenous administration of 70 cc of Isovue 3 00. Axial sections with coronal and sagittal reformats were obtained. 3 palpable markers were placed . FINDINGS: Brain: Visualized portions are grossly unremarkable. Orbits: Unremarkable Sinuses: Grossly unremarkable. Spaces of the neck: Clear and symmetric. Musculoskeletal: No acute osseous pathology. Lymph nodes: A few nonenlarged lymph nodes are demonstrated within the neck. There is a posterior r ight 0.7 cm short axis lymph node at the level of the hyoid bone corresponding to palpable abnormalit y marker (series 3, image 51 through 49). No other suspicious abnormalities involving the bilateral u pper neck palpable markers. Vascular structures: Visualized major arteries are patent without evidence of aneurysm. Thoracic Inlet/airway: Airway is patent. The lung apices are clear. Soft tissues/Thyroid: Thyroid and remainder of the soft tissues are unremarkable. Other: none. IMPRESSION Nonenlarged posterior right lymph node at the level of the hyoid bone corresponds to palpable marker. No other abnormalities demonstrated corresponding to the other 2 palpable markers.
== END | disposition home or self-care (01) ==
LOC: RADUSWWP 07:40
DX: R19.7 Diarrhea, unspecified (principal); I88.8 Other nonspecific lymphadenitis
CPT/HCPCS: 76700; 70491; Q9967

== ENCOUNTER → 2022-06-13 | Outpatient (CLI) | payer OTHER ==
--- NOTE | 2022-06-14 10:21 | MM ---
Reason for Exam: Screening (asymptomatic). Last screening mammogram was performed 12 month(s) ago. Patient History: Menarche at age 9. First Full-Term at age 16. Left ovary removed at age 50. Hysterectomy at age 50. Endometrial cancer, age 50. Risk Values: Carley 5 year model risk: 0.9%. NCI Lifetime model risk: 6.7%. Prior Study Comparison: 04/09/2020 Left Diagnostic Mammogram, [facility]. 10/08/2020 Left Diagnostic Mammogram, [facility]. 06/02/2021 Bilateral Screening Mammogram, [facility]. Tissue Density: There are scattered fibroglandular densities. Findings: Analyzed By CAD. There is no suspicious group of microcalcifications or new suspicious mass in either breast. Benign-appearing calcifications within both breasts. Overall Assessment: Benign, BI-RAD 2 Management: Screening Mammogram of both breasts in 1 year. A clinical breast exam by your physician is recommended on an annual basis and results should be correlated with mammographic findings. Electronically signed and approved by: Humberto Hernandez D.O.
== END | disposition home or self-care (01) ==
LOC: RADMAMWWP 07:13
DX: Z12.31 Encounter for screening mammogram for malignant neoplasm of breast (principal)
CPT/HCPCS: 77063; 77067

== ENCOUNTER 2022-08-19 21:25 | Emergency (ER) | payer OTHER ==
[2022-08-19 21:41] VITALS: TEMP 98
[2022-08-19] MEDS ORDERED: HYDROmorphone 0.5 MG/0.5 ML SYRINGE IVP STA ×2 (21:41→23:39)
[2022-08-19] MEDS ORDERED: ONDANSETRON 4 MG/2 ML VIAL IVP STA (21:46)
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
[2022-08-19 22:22] LABS: Basophils # (A) 0.1 k/uL (0-0.2); Basophils % (A) 0 %; Eosinophils # (A) 0.3 k/uL (0-0.7); Eosinophils % (A) 2 %; HGB 14.9 gm/dL (11.4-16.0); Lymphocytes # (A) 2.7 k/uL (1.0-4.8); Lymphocytes % (A) 18 %; MCH 27.6 pg (25.0-35.0); MCHC 33.8 g/dL (31.0-37.0); MCV 81.6 fL (80.0-100.0); Mean Platelet Volume 8.1; Monocytes # (A) 0.6 k/uL (0-1.0); Monocytes % (A) 4 %; Neutrophils # (A) 11.6 k/uL (1.3-7.7); Neutrophils % (A) 76 %; Platelet Count 294 k/uL (150-450); RBC 5.39 m/uL (3.80-5.40); RDW 12.8 % (11.5-15.5); WBC 15.2 k/uL (3.8-10.6)
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
[2022-08-19 22:32] LABS: ALT 30 U/L (4-34); AST 29 U/L (14-36); African American GFR (CKD) 67 (>60 ml/min/1.73 sqM); Albumin 4.3 g/dL (3.5-5.0); Alcohol <10 mg/dL; Alkaline Phosphatase 87 U/L (38-126); Anion Gap 10 mmol/L; Blood Urea Nitrogen 20 mg/dL (7-17); Calcium 9.5 mg/dL (8.4-10.2); Carbon Dioxide 28 mmol/L (22-30); Chloride 102 mmol/L (98-107); Glucose 153 mg/dL (74-99); Non-African American GFR(CKD) 58 (>60 ml/min/1.73 sqM); Potassium 3.8 mmol/L (3.5-5.1); Sodium 140 mmol/L (137-145); Total Bilirubin 0.6 mg/dL (0.2-1.3); Total Protein 7.2 g/dL (6.3-8.2)
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
[2022-08-19 22:51] LABS: Prothrombin Time 10.5 sec (9.0-12.0)
[2022-08-19] MEDS ORDERED: KETOROLAC 15 MG/ML 1 ML VIAL IVP STA (22:53)
[2022-08-19] MEDS ORDERED: TOPICAL SKIN ADHESIVE 1 EACH AMP TOPICAL ONE (22:53)
[2022-08-19 23:01] LABS: Partial Thromboplastin Time 20.8 sec (22.0-30.0)
[2022-08-20 00:11] VITALS: BP 148/80; PULSE 93; RESP 13
== END 2022-08-20 00:19 | disposition home or self-care (01) ==
LOC: EC 21:25
DX: S42.292A Other displaced fracture of upper end of left humerus, initial encounter for closed fracture (principal); S01.81XA Laceration without foreign body of other part of head, initial encounter; Z87.891 Personal history of nicotine dependence; Z88.5 Allergy status to narcotic agent; V89.2XXA Person injured in unspecified motor-vehicle accident, traffic, initial encounter; Y92.410 Unspecified street and highway as the place of occurrence of the external cause
CPT/HCPCS: 36415; 93005; 86900; 86901; 80053; 84484; 85025; 85610; 85730; 86850; 80320; 72170; 73020; 73130; 71045; 72125; 70450; 12013; 99291; 96374; 96375 ×2; 96376; J2405; J1885; J1170 ×2

== ENCOUNTER → 2023-07-04 | Outpatient (CLI) | payer OTHER ==
--- NOTE | 2023-07-05 19:03 | MM ---
Reason for Exam: Screening (asymptomatic). Last mammogram was performed 1 year(s) and 1 month(s) ago. Patient History: Menarche at age 9. First Full-Term at age 16. Left ovary removed at age 50. Hysterectomy at age 50. Endometrial cancer, age 50. Risk Values: Carley 5 year model risk: 0.9%. NCI Lifetime model risk: 6.6%. Prior Study Comparison: 10/08/2020 Left Diagnostic Mammogram, [facility]. 06/02/2021 Bilateral Screening Mammogram, [facility]. 06/13/2022 Bilateral MG 3D screening mammo w/cad, [facility]. Tissue Density: There are scattered areas of fibroglandular density. Findings: Analyzed By CAD. Asymmetric density outer aspect of the left breast middle to posterior depth appears more defined. It persists on 3-D images. Further evaluation is recommended. Otherwise, no significant change. Overall Assessment: Incomplete: need additional imaging evaluation, BI-RAD 0 Management: Special View Mammogram of the left breast. Diagnostic Breast Ultrasound of the left breast. . [facility] will attempt to contact patient to return for supplemental views and ultrasound if indicated. Electronically signed and approved by: Angel Rutherford M.D. Radiologist
== END | disposition home or self-care (01) ==
LOC: RADMAMWWP 07:25
PROVIDERS: ATTEND Family Medicine
DX: Z12.31 Encounter for screening mammogram for malignant neoplasm of breast (principal)
CPT/HCPCS: 77063; 77067

== ENCOUNTER → 2023-07-10 | Outpatient (CLI) | payer OTHER ==
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
== END | disposition home or self-care (01) ==
LOC: RADBDWWP 07:16
PROVIDERS: ATTEND Family Medicine
DX: M85.89 Other specified disorders of bone density and structure, multiple sites (principal)
CPT/HCPCS: 77080

== ENCOUNTER → 2023-07-12 | Outpatient (CLI) | payer OTHER ==
--- NOTE | 2023-07-12 14:42 | MM ---
Reason for Exam: Additional evaluation requested from abnormal screening. Last screening mammogram was performed less than 1 month ago. Patient History: Menarche at age 9. First Full-Term at age 16. Left ovary removed at age 50. Hysterectomy at age 50. Risk Values: Carley 5 year model risk: 0.9%. NCI Lifetime model risk: 6.6%. Prior Study Comparison: 06/02/2021 Bilateral Screening Mammogram, [facility]. 06/13/2022 Bilateral MG 3D screening mammo w/cad, [facility]. 07/04/2023 Bilateral MG 3D screening mammo w/cad, [facility]. Tissue Density: Left: There are scattered areas of fibroglandular density. Findings: Analyzed By CAD. The questioned asymmetric density outer aspect of the left breast middle to posterior depth disperses on additional views and is compatible with a prominent island of fibroglandular tissue. No significant change from prior exams. Overall Assessment: Benign, BI-RAD 2 Management: Screening Mammogram of both breasts in 1 year. No ultrasound needed at this time. Results were given to the patient verbally at the time of exam. Patient should continue monthly self-breast exams. A clinical breast exam by your physician is recommended on an annual basis. This exam should not preclude additional follow-up of suspicious palpable abnormalities. Note on Carley scores and lifetime risk: 1. A Carley score greater than 3% is considered moderate risk. If this is the case, consider specialist referral to assess eligibility for a risk reducing agent. 2. If overall lifetime risk for the development of breast cancer is 20% or higher, the patient may qualify for future screening with alternating mammogram and breast MRI. Electronically signed and approved by: Angel Rutherford M.D. Radiologist
== END | disposition home or self-care (01) ==
LOC: RADMAMWWP 13:53
PROVIDERS: ATTEND Family Medicine
DX: R92.322 Mammographic fibroglandular density, left breast (principal)
CPT/HCPCS: 77061; 77065

== ENCOUNTER → 2024-07-14 | Outpatient (CLI) | payer OTHER ==
--- NOTE | 2024-07-14 11:48 | MM ---
Reason for Exam: Screening (asymptomatic). Last screening mammogram was performed 12 month(s) ago. Patient History: Menarche at age 9. First Full-Term at age 16. Left ovary removed at age 50. Hysterectomy at age 50. Risk Values: [place] 5 year model risk: 1.0%. NCI Lifetime model risk: 6.4%. Prior Study Comparison: 06/13/2022 Bilateral MG 3D screening mammo w/cad, [facility]. 07/04/2023 Bilateral MG 3D screening mammo w/cad, [facility]. 07/12/2023 Left MG 3D work up w/cad , [facility]. Tissue Density: There are scattered areas of fibroglandular density. Findings: Analyzed By CAD. Right breast: There is no suspicious group of microcalcifications or new suspicious mass. Left breast: There is no suspicious group of microcalcifications or new suspicious mass. Overall Assessment: Negative, BI-RAD 1 Management: Screening Mammogram of both breasts in [address] [facility] will attempt to contact patient to return for supplemental views and ultrasound if indicated. Patient should continue monthly self-breast exams. A clinical breast exam by your physician is recommended on an annual basis. This exam should not preclude additional follow-up of suspicious palpable abnormalities. Note on Carley scores and lifetime risk: 1. A Carley score greater than 3% is considered moderate risk. If this is the case, consider specialist referral to assess eligibility for a risk reducing agent. 2. If overall lifetime risk for the development of breast cancer is 20% or higher, the patient may qualify for future screening with alternating mammogram and breast MRI. [facility], , 07/14/2024 7:36 AM. Electronically signed and approved by: Tanner Velasco DO
== END | disposition home or self-care (01) ==
LOC: RADMAMWWP 07:07
PROVIDERS: ATTEND Family Medicine
DX: Z12.31 Encounter for screening mammogram for malignant neoplasm of breast (principal); R92.323 Mammographic fibroglandular density, bilateral breasts; Z80.3 Family history of malignant neoplasm of breast
CPT/HCPCS: 77063; 77067